=== PATIENT | male | born 1930 | race Asian ===

== ENCOUNTER 2018-12-27 08:35 | Emergency (ER) | payer OTHER ==
[~2018-12-27] VITALS: Ht 165.1 cm; Wt 68.0 kg
--- NOTE | 2018-12-27 08:35 | NUR ---
Admit a male pt in rm 1B via [facility] ambulance with a c/o lethary and low blood sugar. Pt is placed on monitor, arousable to call but generally weak. Blood sugar rechecked, 87.
--- NOTE | 2018-12-27 08:45 | NUR ---
Seen and examined by Dr Tovar with new orders. Started a heplock line on the right AC g#20.
[2018-12-27] MEDS ORDERED: IV NORMAL SALINE 1000 ML BAG IV ONE (09:15)
[2018-12-27] MEDS ORDERED: BISA10SU61 RC (09:16)
[2018-12-27] MEDS ORDERED: CYAN100T3 PO (09:16)
[2018-12-27] MEDS ORDERED: CHOL200078 PO (09:16)
[2018-12-27] MEDS ORDERED: SENN-168 PO (09:16)
[2018-12-27] MEDS ORDERED: DIGO0.12 PO (09:16)
[2018-12-27] MEDS ORDERED: FINA5TAB3 PO (09:16)
[2018-12-27] MEDS ORDERED: TAMS-3 PO (09:16)
[2018-12-27] MEDS ORDERED: METF-442 PO (09:16)
[2018-12-27] MEDS ORDERED: INSU100V7 SQ (09:16)
[2018-12-27] MEDS ORDERED: LIDOCAINE 5% PATCH (09:16)
[2018-12-27] MEDS ORDERED: PRAV40TA3 PO (09:16)
[2018-12-27] MEDS ORDERED: LIDO30AD10 TD (09:16)
[2018-12-27] MEDS ORDERED: INSU100V28 SQ (09:16)
[2018-12-27] MEDS ORDERED: ACET-2154 PO (09:16)
[2018-12-27] MEDS ORDERED: LISI2.5T2 PO (09:16)
[2018-12-27] MEDS ORDERED: FOLI0.8T2 PO (09:16)
[2018-12-27 09:40] LABS: BASOPHILS % (AUTO) 0.4 % (0.0-2.0); EOSINOPHILS # (AUTO) 0.2 K/uL (0.0-0.7); EOSINOPHILS % (AUTO) 3.6 % (0.0-7.0); HEMATOCRIT 29.8 % (36.7-47.1); HEMOGLOBIN 9.7 g/dL (12.5-16.3); LYMPHOCYTES # (AUTO) 0.6 K/uL (20.0-40.0); LYMPHOCYTES % (AUTO) 10.5 % (20.5-51.5); MEAN CORPUSCULAR HEMOGLOBIN 30.4 uug (23.8-33.4); MEAN CORPUSCULAR HGB CONC 33 g/dL (32.5-36.3); MEAN CORPUSCULAR VOLUME 93.4 fL (73.0-96.2); MONOCYTES # (AUTO) 0.6 K/uL (2.0-10.0); MONOCYTES % (AUTO) 10.9 % (0.0-11.0); NEUTROPHILS % (AUTO) 74.6 % (38.5-71.5); PLATELET COUNT (AUTO) 278 K/uL (152-348); RED BLOOD CELL COUNT(AUTO) 3.19 MIL/uL (4.06-5.63); WHITE BLOOD COUNT (AUTO) 5.4 K/uL (3.6-10.2)
[2018-12-27 09:44] LABS: CREATININE 0.8 mg/dL (0.6-1.3); POTASSIUM 4.1 mmol/L (3.5-5.1)
[2018-12-27] MEDS ORDERED: DEXTROSE 50% 50 ML DISP.SYRIN IV ONE (09:45)
[2018-12-27] MEDS ORDERED: IV D5/ 0.9% NACL 1,000 ML IV ONE (09:45)
--- NOTE | 2018-12-27 09:45 | NUR ---
Repeated blood sugar as ordered, its 59. aware. Medicated with D50 1 ampule slow IVP as ordered. Pt still lethargic but responsive.
[2018-12-27] MEDS ORDERED: DEXTROSE 50% 50 ML DISP.SYRIN ONE (09:46)
[2018-12-27 09:49] LABS: *BILIRUBIN,URIN NEGATIVE (NEGATIVE); *BLOOD, URINE 2+ (NEGATIVE); *COLOR,URINE YELLOW (YELLOW); *KETONES,URINE NEGATIVE (NEGATIVE); LEUKOCYTE ESTERASE ,URINE 2+ (NEGATIVE); NITRITE, URINE NEGATIVE (NEGATIVE); UGLUCOSE NEGATIVE (NEGATIVE)
[2018-12-27 09:50] LABS: BILIRUBIN,DIRECT 0.2 mg/dL (0.0-0.2); BILIRUBIN,TOTAL 0.5 mg/dL (0.2-1.0); TOTAL PROTEIN, SERUM 6.1 g/dL (6.4-8.2)
--- NOTE | 2018-12-27 09:50 | NUR ---
Pt down to [facility] via [facility].
[2018-12-27 09:54] LABS: *CLARITY,URINE HAZY (CLEAR)
[2018-12-27 10:03] LABS: RBC,URINE 20-50 /HPF (0-3)
[2018-12-27 10:04] LABS: BACTERIA,URINE NONE SEEN /HPF (NONE SEEN); WBC,URINE 20-50 /HPF (0-3)
[2018-12-27 10:05] LABS: MUCUS,URINE FEW /LPF (0-FEW); SQUAMOUS EPITHELIAL CELL,UR FEW /HPF (NONE SEEN); YEAST,URINE MODERATE /HPF (NONE SEEN)
[2018-12-27] MEDS ORDERED: LEVOFLOXACIN 500 MG/D5W 100ML PIGGYBACK IV ONE (10:15)
[2018-12-27] MEDS ORDERED: PIPERACILLIN SODIUM/TAZOBACTAM 3.375 G in IV DEXTROSE 5% 50 ML IV ONE (10:15)
[2018-12-27] MEDS ORDERED: PIPERACILLIN SODIUM/TAZO 3.375 GM VIAL ONE (10:27)
[2018-12-27] MEDS ORDERED: LEVOFLOXACIN 500 MG/D5W 100 ML ONE (10:28)
[2018-12-27] MEDS ORDERED: PANTOPRAZOLE SODIUM IV 80 MG in IV DEXTROSE 5% 100 ML IV ONE (11:00)
--- NOTE | 2018-12-27 11:14 | NUR ---
Ashley on 12/27/2018 Protonix 80mg slow IVPB given at 1114 and ended at 1204PM. Shanda Dinero RN
[2018-12-27] MEDS ORDERED: PANTOPRAZOLE SODIUM 40 MG VIAL ONE (11:22)
--- NOTE | 2018-12-27 11:30 | NUR ---
Pt is being is being transferred to [facility] in [facility] with a recieving MD Dr Dennison. Ambulance ETA is 12noon.
--- NOTE | 2018-12-27 11:50 | NUR ---
Notified son Jonah of the transfer to [facility].
--- NOTE | 2018-12-27 12:04 | NUR ---
Ashley 12/27/2018 Protonix 80mg slow IVPB given at 1123 and ended up at 1204PM. Shanda Dinero RN
--- NOTE | 2018-12-27 12:15 | NUR ---
Pt is discharged from our ER and taken to [facility] via [facility] ambulance. Pt is more awake. Made aware about his transfer to . Report given to Clarke FREEDMAN in the ER of [facility].
--- NOTE | 2018-12-27 12:20 | NUR ---
Pt is transferred via S ambulance. Condition is guarded.
--- NOTE | 2018-12-31 08:45 | NUR ---
LATE ENTRY: 12/27/18 PROTONIX 80MG (100ML) IVPB WAS GIVEN OVER 15 MINS ORDERED BY LIANA START TIME: 1123 COMPLETED: 113
== END 2018-12-27 12:20 | disposition short-term general hospital (02) ==
LOC: ER 08:38
DX: N39.0 Urinary tract infection, site not specified (principal); J90 Pleural effusion, not elsewhere classified; D64.9 Anemia, unspecified; R53.83 Other fatigue; R19.5 Other fecal abnormalities; E11.649 Type 2 diabetes mellitus with hypoglycemia without coma; Z79.4 Long term (current) use of insulin; Z79.899 Other long term (current) drug therapy
CPT/HCPCS: 36415; 70450; 71045; 71250; 80048; 80076; 80162; 81000; 81001; 83605; 84484; 85025; 85610; 87040 ×2; 87086; 93005; 96361; 96365; 96375 ×2; 99285; C9113; J1956; J2543; J3490; J7060; 70030-TC; A4663; J7030